=== PATIENT | female | born 1945 | race Caucasian/White ===

== ENCOUNTER 2016-12-17 06:14 | Day surgery (SDC) | payer MEDICARE, OTHER ==
[2016-12-17] MEDS ORDERED: Sodium Chloride 0.9% 1,000 ML IV SCH (07:00)
[2016-12-17] MEDS ORDERED: Propofol 200 MG/20 ML SDV ONE (07:25)
[2016-12-17] MEDS ORDERED: fentaNYL 100 MCG/2 ML SDV ONE (07:25)
[2016-12-17] MEDS ORDERED: Midazolam 1 MG/ML 2 ML SDV ONE (07:25)
[2016-12-17] MEDS ORDERED: Glycopyrrolate 0.2 MG/ML 2 ML SDV IVPUSH ONE (07:30)
[2016-12-17] MEDS ORDERED: Albuterol/Ipratropium 3.0-0.5 MG/3 ML Neb Soln NEB ONE (07:45)
[2016-12-17] MEDS ORDERED: Acetylcysteine 600 MG, Water For Injection,Sterile 57 ML ONE ×2 (08:00)
[2016-12-17 10:53] VITALS: BP 130/79
--- NOTE | 2016-12-21 08:30 | OR ---
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 COMPLICATIONS: None. TRUCK SERVICE TECHNICIAN: None. ANESTHESIA: MAC. RISKS: Risks, benefits, alternatives, limitations including but are not limited to infection, bleeding, and perforation were explained to the patient, along with chronic pain. She understands these risks and wished to proceed. PROCEDURE IN DETAIL: The patient was placed in a decubitus position. MAC anesthesia was administered. The EGD scope was introduced with examination of the top of intestinal metaplasia and the top of intestinal folds. The distance from the bite block to each of these the anastomotic landmarks were recorded with a total intestinal metaplasia calculated from these measurements. The top of gastric folds was at 41 and the top of the intestinal metaplasia was at 43. The Snyder's esophagus tissue was irrigated with an N-acetylcysteine 1% mixed with plain water. A guidewire was then introduced and the endoscope was removed. A [employer] 360 Express RFA balloon catheter was introduced over the guidewire. The endoscope was introduced in a [id number] manner with the balloon catheter. The balloon electrode was positioned under direct visualization, so the proximal edge of the electrode was slightly above the top of the intestinal metaplasia. The balloon was then automatically inflated and energy was applied, 230 felton at 10 joules/sq cm. The displayed inner diameter was measured and recorded. The electrode was moved distally by 4 cm along the proximal edge of the electrode with the distal edge of the ablating balloon. Inflation and ablation were repeated until the top of the gastric fold was reached. The balloon catheter was removed, cleaned, and reintroduced. The ablation zone was cleaned of coagulated debris with irrigation and suction using the endoscope and cleaning cap. The balloon catheter was positioned under direct visualization, so that the proximal edge of the electrode was at the proximal edge of the ablation zone. Inflation, ablation, and repositioning were repeated as in the first segments of treatment. The balloon catheter and guidewire were removed. EGD confirmed complete ablation of the intestinal metaplasia. The patient tolerated the procedure well. Berto Blanca MD /[id number]
== END 2016-12-17 09:20 | disposition home or self-care (01) ==
LOC: JP.SDS 06:14
PROVIDERS: ATTEND Surgery
DX: K22.70 Barrett's esophagus without dysplasia (principal); I10 Essential (primary) hypertension; F32.9 Major depressive disorder, single episode, unspecified; F41.9 Anxiety disorder, unspecified; J45.909 Unspecified asthma, uncomplicated; E11.9 Type 2 diabetes mellitus without complications; K21.9 Gastro-esophageal reflux disease without esophagitis; E66.9 Obesity, unspecified; Z90.49 Acquired absence of other specified parts of digestive tract; Z90.710 Acquired absence of both cervix and uterus; Z88.1 Allergy status to other antibiotic agents; Z88.2 Allergy status to sulfonamides; Z88.8 Allergy status to other drugs, medicaments and biological substances; Z98.890 Other specified postprocedural states; Z96.659 Presence of unspecified artificial knee joint; Z68.30 Body mass index [BMI] 30.0-30.9, adult
CPT/HCPCS: 43229; A9270; C1713; C1886; J2250; J2704; J3010; J7040; J7620; J3490

== ENCOUNTER 2017-02-09 06:04 | Day surgery (SDC) | payer MEDICARE, OTHER ==
[2017-02-09] MEDS ORDERED: Sodium Chloride 0.9% 1,000 ML IV SCH (06:45)
[2017-02-09] MEDS ORDERED: Midazolam 1 MG/ML 2 ML SDV ONE (07:27)
[2017-02-09] MEDS ORDERED: Propofol 200 MG/20 ML SDV ONE ×2 (07:27→08:08)
[2017-02-09] MEDS ORDERED: fentaNYL 100 MCG/2 ML SDV ONE (07:27)
[2017-02-09] MEDS ORDERED: Glycopyrrolate 0.2 MG/ML 2 ML SDV ONE (07:40)
[2017-02-09] MEDS ORDERED: Alum Hydrox/Mag Hydrox/Simeth 360 ML, Lidocaine 2% 60 ML PO SCH ×2 (08:00)
[2017-02-09] MEDS ORDERED: Acetylcysteine 600 MG, Water For Injection,Sterile 57 ML ONE ×2 (08:00)
[2017-02-09 10:35] VITALS: BP 136/83
--- NOTE | 2017-02-09 16:09 | OR ---
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 COMPLICATIONS: None. NUTRITION THERAPIST: None. ANESTHESIA: MAC. RISKS: Risks, benefits, alternatives, limitations including, but not limited to infection, bleeding, and perforation were explained to the patient along with chronic pain. She understands these risks and wishes to proceed. PROCEDURE IN DETAIL: The patient was placed in left lateral decubitus position. MAC anesthetic was administered. The EGD scope was introduced with examination of the top intestinal metaplasia and the top of the gastric folds. The distance from the bite block to these anastomotic landmarks were recorded with the total intestinal metaplasia calculated from these measurements. The top of the gastric folds was at 40 and the top intestinal metaplasia was at 42. Snyder's esophagus tissue was irrigated with N-acetylcysteine 1% mixed with plain water. A guidewire was introduced and the endoscope was removed. The [employer] 360 Express RFA balloon catheter was introduced over the guidewire. The endoscope was introduced in a [id number] manner with the balloon catheter. The balloon electrode was positioned under direct visualization. The proximal edge was slightly approximately 1 cm above the top of the intestinal metaplasia. The balloon was inflated. Suction was commenced and the RFA probe energy was deployed. During this remaining process, the energy was applied approximately 230 felton at 10 joules per square centimeter. The displayed inner diameter was measured and recorded. Electrode was removed approximately 2 cm, therefore straddling the proximal edge. Inflation and ablation were repeated on the top using the same procedure. Of note, the balloon catheter was removed, cleaned, and reintroduced. The ablation catheter was cleaned of coagulated debris and suction was performed along with cleaning/scraping. The balloon catheter and guidewire were removed. The EGD confirmed complete ablation of intestinal metaplasia. The patient tolerated the procedure well. Berto Blanca MD /[id number]
== END 2017-02-09 10:35 | disposition home or self-care (01) ==
LOC: JP.SDS 06:04
PROVIDERS: ATTEND Surgery
DX: K22.70 Barrett's esophagus without dysplasia (principal); I10 Essential (primary) hypertension; E11.9 Type 2 diabetes mellitus without complications; Z88.1 Allergy status to other antibiotic agents; Z88.2 Allergy status to sulfonamides; Z88.5 Allergy status to narcotic agent; Z88.8 Allergy status to other drugs, medicaments and biological substances
CPT/HCPCS: 36415; 43270; 82553; 84484; 93005; C1886; J2250; J2704; J3010; J7040; 93010; J3490

== ENCOUNTER 2017-04-06 07:25 | Day surgery (SDC) | payer MEDICARE, OTHER ==
[2017-04-06] MEDS ORDERED: fentaNYL 100 MCG/2 ML SDV ONE (08:50)
[2017-04-06] MEDS ORDERED: Propofol 200 MG/20 ML SDV ONE (08:50)
[2017-04-06] MEDS ORDERED: Midazolam 1 MG/ML 2 ML SDV ONE (08:50)
[2017-04-06] MEDS ORDERED: Sodium Chloride 0.9% 1,000 ML IV SCH (09:00)
[2017-04-06] MEDS ORDERED: Acetylcysteine 600 MG, Water For Injection,Sterile 57 ML ONE ×2 (10:00)
[2017-04-06 10:39] VITALS: BP 138/96
--- NOTE | 2017-04-06 11:01 | OR ---
DATE OF PROCEDURE: 04/06/2017 PROCEDURE: Barrx (radiofrequency ablation of Snyder's esophagus of the distal esophagus, ablation #3). COMPLICATIONS: None. DERRICK MAN: None. ANESTHESIA: MAC. RISKS: Risks, benefits, alternatives, and limitations including, but not limited to infection, bleeding, and perforation were explained to the patient, along with chronic pain, along with strictures. She understands these risks and wished to proceed. PROCEDURE IN DETAIL: The patient was placed in left lateral decubitus position. MAC anesthetic was administered. The scope was introduced with examination of the top intestinal metaplasia to the top of the gastric fold. The distance from the bite block to the anatomic landmarks were recorded, and the total intestinal metaplasia was calculated from these measurements. The top of the gastric fold was at approximately 38, and the top of intestinal metaplasia was approximately 36. Snyder's esophagus tissue was irrigated with N-acetylcysteine mixed with plain water, guidewire was introduced, and the endoscope was removed. The Barrx focal ablation device was then introduced and was ablated in a circumferential pattern, using the segmental device. Approximately 8 segments were produced. This was all held with gentle pressure applied to the area, deployment x2 in each area. The focal ablator was then used to scrape, and this was repeated a second time. No abnormalities were noted. The scope was removed. The patient tolerated the procedure well. Berto Blanca MD /[id number]
== END 2017-04-06 11:17 | disposition home or self-care (01) ==
LOC: JP.SDS 07:25
PROVIDERS: ATTEND Surgery
DX: K22.70 Barrett's esophagus without dysplasia (principal); I10 Essential (primary) hypertension; J45.909 Unspecified asthma, uncomplicated; E11.9 Type 2 diabetes mellitus without complications; Z88.1 Allergy status to other antibiotic agents; Z88.2 Allergy status to sulfonamides; Z88.8 Allergy status to other drugs, medicaments and biological substances
CPT/HCPCS: 43270; C1713; C1886; J2250; J2704; J3010; J7040; J7030